=== PATIENT | female | born 1975 | race Caucasian/White ===

== ENCOUNTER 2019-01-28 05:57 | Emergency (ER) | payer BC ==
[2019-01-28 06:39] VITALS: RESP 20; TEMP 100.7
[2019-01-28 06:44] LABS: BASOPHILS % (AUTO) 0 % (0-3); EOSINOPHILS % (AUTO) 0 % (0-9); HEMATOCRIT 38 % (35-47); HEMOGLOBIN 12.6 gm/dl (12.0-15.5); LYMPHOCYTES % (AUTO) 12.8 % (10-50); MEAN CORPUSCULAR HEMOGLOBIN 26.8 pg (27.0-32.0); MEAN CORPUSCULAR HGB CONC 32.9 gm/dl (32.0-36.0); MEAN CORPUSCULAR VOLUME 82 fL (81-99); MONOCYTES % (AUTO) 4.1 % (0-12); NEUTROPHILS % (AUTO) 82.5 % (37-80)
[2019-01-28 07:09] LABS: APPEARANCE,URINE Clear; BILIRUBIN,URINE NEGATIVE (NEGATIVE); COLOR,URINE Yellow; GLUCOSE, URINE (UA) NEGATIVE (NEGATIVE); KETONES,URINE NEGATIVE (NEGATIVE); LEUKOCYTE ESTERASE ,URINE NEGATIVE (NEGATIVE); NITRATE,URINE NEGATIVE (NEGATIVE); OCCULT BLOOD,URINE 1+ (NEG-TRACE); UROBILINOGEN,URINE 0.2 (0.2-1.0 EU)
[2019-01-28 07:10] VITALS: BP 131/81; PULSE 110; O2SAT 94
[2019-01-28 07:19] LABS: BACTERIA 1+ (< 1+); CRYSTALS NEGATIVE (0-3 AVE/HPF)
== END 2019-01-28 07:11 | disposition home or self-care (01) ==
LOC: ED 05:57
DX: R50.9 Fever, unspecified (principal); B34.9 Viral infection, unspecified
CPT/HCPCS: 36415; 81001; 85025; 99282